=== PATIENT | male | born 1960 | race African-American/Black ===

== ENCOUNTER 2024-11-29 07:21 | Emergency (ER) | payer MEDICAID ==
[~2024-11-29] VITALS: Ht 180.3 cm; Wt 85.0 kg
[2024-11-29 07:24] VITALS: O2SAT 98
[2024-11-29 07:50] VITALS: BP 157/70; PULSE 67; RESP 16; TEMP 36.9; O2SAT 100
[2024-11-29 09:22] LABS: BASOPHILS % 0.6 % (0.0-2.0); EOSINOPHILS % 0.3 % (0.0-5.0); HEMATOCRIT. 35.3 % (42.0-52.0); HEMOGLOBIN. 12.1 g/dL (14.0-18.0); LYMPHOCYTES % 9.0 % (20.0-50.0); MEAN PLATELET VOLUME 6.3 fl (7.4-10.4); MONOCYTES % 3.1 % (2.0-8.0); NEUTROPHILS % 87.0 % (40.0-76.0); PLATELET 255 x1000/uL (130-400); RED BLOOD CELL COUNT 3.81 mill/uL (4.7-6.1); RED CELL DISTRIBUTION WIDTH 14.4 % (11.6-14.6)
[2024-11-29 09:23] LABS: CLARITY URINE CLOUDY (CLEAR); COLOR URINE RED (YELLOW); GLUCOSE URINE NEGATIVE (NEGATIVE); KETONES URINE NEGATIVE (NEGATIVE); LEUKOCYTE ESTERASE URINE TRACE (NEGATIVE); NITRITE URINE NEGATIVE (NEGATIVE); OCCULT BLOOD URINE 3+ (NEGATIVE); PH URINE 8.0 (4.5-8.0); PROTEIN URINE 1+ (NEGATIVE); SPECIFIC GRAVITY URINE 1.007 (1.005-1.030); UROBILINOGEN URINE 0.2 E.U./dL (0.2-1.0)
[2024-11-29 09:47] LABS: BACTERIA URINE NONE SEEN; RBC URINE TNTC /hpf (0-2); SQUAMOUS EPITHELIAL CELL URINE 1+ /lpf (RARE/1+); YEAST URINE NONE SEEN
[2024-11-29 09:59] LABS: CREATININE 1.3 mg/dL (0.6-1.3)
[2024-11-29 10:00] LABS: UREA NITROGEN BLOOD 17 mg/dL (9-23)
[2024-11-29 10:01] LABS: ASPARTATE AMINOTRANSFERASE 52 IU/L (<34)
[2024-11-29 10:02] LABS: BILIRUBIN DIRECT 0.2 mg/dL (<=3.0); BILIRUBIN TOTAL 0.5 mg/dL (0.1-1.0); PROTEIN TOTAL 7.4 g/dL (6.0-8.3)
== END 2024-11-29 09:57 | disposition left against medical advice (07) ==
LOC: EDSEX 07:21 → ER 07:21
DX: R10.9 Unspecified abdominal pain (principal); F17.200 Nicotine dependence, unspecified, uncomplicated; Z88.0 Allergy status to penicillin
CPT/HCPCS: 80076; 80048; 81003; 85025; 36415; 99283; Z7610